=== PATIENT | female | born 1980 ===

== ENCOUNTER 2016-07-11 12:58 | Emergency (ER) | payer MEDICAID, OTHER ==
[2015-08-08 16:13] VITALS: BMI 25.0
--- NOTE | 2016-07-11 20:04 | RAD ---
PROCEDURE: CHEST RADIOGRAPH, 1 portable HISTORY: Palpitations COMPARISON: None available. FINDINGS: LUNGS: Clear. PLEURA: No pneumothorax or pleural fluid seen. CARDIOVASCULAR: Normal. Central pulmonary vasculature top-normal OSSEOUS STRUCTURES: No significant abnormalities. VISUALIZED UPPER ABDOMEN: Normal. OTHER FINDINGS: None. IMPRESSION: No active disease.
--- NOTE | 2016-07-11 21:14 | US ---
HISTORY: Hyperthyroid, neck pain for 2 weeks, palpitations TECHNIQUE: Sonographic evaluation of the thyroid gland. COMPARISON: None available FINDINGS: RIGHT LOBE: Measures 6.4 x 2.5 x 2.5 cm. Heterogeneous echotexture. Hypervascular. Nodules: None LEFT LOBE: Measures 6.1 x 2.3 x 2.9 cm. Heterogeneous echotexture. Hypervascular Nodules: None ISTHMUS: Measures 3 mm. Heterogeneous echotexture. Hypervascular. Nodules: None OTHER FINDINGS: None . IMPRESSION: Heterogeneous echotexture. Hypervascularity. Otherwise unremarkable thyroid ultrasound as above. Recommend correlation with thyroid function tests.
[2016-07-11 23:48] LABS: BASO % 0.3 % (0.0-2.0); EOS % 0.9 % (0.0-4.0); HEMATOCRIT 35.3 % (34.0-47.0); LYMPH # 2.6 K/uL (1.0-4.3); LYMPH % 45.9 % (20.0-40.0); MEAN CELL VOLUME 77.3 fL (81.0-99.0); MEAN CORPUSCULAR HEMOGLOBIN 25.4 pg (27.0-31.0); MEAN CORPUSCULAR HGB CONC 32.9 g/dL (33.0-37.0); MEAN PLATELET VOLUME 8.9 fL (7.2-11.7); MONO # 0.6 K/uL (0.0-0.8); MONO % 11.1 % (0.0-10.0); NRBC % 0.1 % (0.0-2.0); RED CELL DISTRIBUTION WIDTH 13.5 % (11.5-14.5); WHITE BLOOD COUNT 5.6 K/uL (4.8-10.8)
[2016-07-12 06:21] LABS: RBC URINE 1 /hpf (0-3); URINE BILIRUBIN NEGATIVE (NEGATIVE); URINE BLOOD 1+ (NEGATIVE); URINE COLOR STRAW (YELLOW); URINE GLUCOSE (UA) Normal (Normal); URINE KETONE NEGATIVE (NEGATIVE); URINE LEUKOCYTE ESTERASE Negative Leu/uL (Negative); URINE PROTEIN NEGATIVE (NEGATIVE); URINE UROBILINOGEN Normal mg/dL (0.2-1.0)
[2016-07-12 06:22] LABS: URINE BACTERIA RARE (<OCC); WBC URINE < 1 /hpf (0-5)
[2016-07-12 07:15] LABS: BLOOD UREA NITROGEN 11 mg/dL (7-17); CALCIUM 8.1 mg/dl (8.6-10.4); CARBON DIOXIDE 22 mmol/L (22-30); CHLORIDE 106 mmol/L (98-107); GFR AFRICAN-AMERICAN > 60; GLUCOSE,RANDOM 93 mg/dL (65-105); POTASSIUM 3.7 mmol/L (3.6-5.2); SODIUM 138 mmol/L (132-148); TOTAL PROTEIN 6.5 g/dL (6.3-8.3)
[2016-07-12 07:16] LABS: ALB/GLOB RATIO 1.3 (1.0-2.1); ALKALINE PHOSPHATASE 144 U/L (38-126); ALT/SGPT 31 U/L (9-52); AST/SGOT 24 U/L (14-36); BILIRUBIN,TOTAL 1.5 mg/dL (0.2-1.3)
[2016-07-12 07:17] LABS: T4 > 24.9 ug/dL (5.5-11.0); THYROID STIMULATING HORMONE < 0.02 mIU/L (0.46-4.68)
== END 2016-07-11 19:25 | disposition home or self-care (01) ==
LOC: C.ER 12:58
DX: E05.90 Thyrotoxicosis, unspecified without thyrotoxic crisis or storm (principal)

== ENCOUNTER 2016-10-07 12:46 | Emergency (ER) | payer MEDICAID ==
[2016-10-07 12:47] VITALS: BMI 25.0
[2016-10-07 13:07] VITALS: BP 109/68; PULSE 109; RESP 18; TEMP 97.7; O2SAT 95
== END 2016-10-07 13:04 | disposition left against medical advice (07) ==
LOC: C.ER 12:46
DX: R10.9 Unspecified abdominal pain (principal); Z02.9 Encounter for administrative examinations, unspecified